=== PATIENT | female | born 1990 | race Caucasian/White ===

== ENCOUNTER 2018-07-24 00:25 | Emergency (ER) | payer OTHER ==
[2018-07-24 00:33] VITALS: BP 138/92; PULSE 94; TEMP 98.1; BMI 20.7
--- NOTE | 2018-07-24 00:44 | PDOC ---
History of Present Illness - General Chief Complaint: Urinary Problem Stated Complaint: URINARY SYMPTOMS Time Seen by Provider: 07/24/18 00:42 History Source: Patient Exam Limitations: No Limitations - History of Present Illness Initial Comments: 07/24/18 00:45 This is a 28-year-old female who comes in complaining of frequency dysuria or blood in her urine. Patient has had the symptoms for several days. Patient denies any diarrhea fever chills back pain or flank pain. Patient has history of similar symptoms in the past for urinary tract infection. However patient says it's worse than usual. PAST MEDICAL HISTORY: no significant history PAST SURGICAL HISTORY: no significant history FAMILY HISTORY: no pertinant history SOCIAL HISTORY: Pt lives with family and is employed. MEDICATIONS: reviewed ALLERGIES: As per nursing notes Review of Systems General: No fevers or chills, no weakness, no weight loss HEENT: No change in vision. No sore throat,. No ear pain CardioVascular: No chest pain or shortness of breath Respiratory:No cough, or wheezing. Gastrointestinal: no nausea, vomitting, diarrhea or constipation, No rectal bleeding Genitourinary: + dysuria, + hematuria, or + frequency Musculoskeletal: No joint or muscle pain or swelling Neurologic: No headache, vertigo, dizziness or loss of consciousness Psychiatric: nor depression Skin: No rashes or easy bruising Endocrine: no increased thirst or abnormal weight change Allergic: no skin or latex allergy All other systems reviewed and normal GENERAL: The patient is awake, alert, and fully oriented, in no acute distress. HEAD: Normal with no signs of trauma. EYES: Pupils equal, round and reactive to light, extraocular movements intact, sclera anicteric, conjunctiva clear. EXTREMITIES: Normal range of motion, no edema. BACK: There is no CVA back or flank pain and palpation NEUROLOGICAL: Normal speech, normal gait. grossly intact PSYCH: Normal mood, normal affect. SKIN: Warm, Dry, normal turgor, no rashes or lesions noted.: Past History - Past Medical History Allergies/Adverse Reactions: Allergies Allergy/AdvReac Type Severity Reaction Status Date / Time No Known Allergies Allergy Unverified 07/24/18 00:26 Home Medications: Ambulatory Orders Nitrofurantoin Monohyd/M-Cryst [Macrobid -] 100 mg PO BID #28 capsule 07/24/18 Norgestimate-Ethinyl Estradiol [Ortho-Cyclen] 1 each PO DAILY 07/24/18 Phenazopyridine HCl [Pyridium] 200 mg PO TID #6 tablet 07/24/18 COPD: No - Suicide/Smoking/Psychosocial Hx Smoking History: Never smoked *Physical Exam - Vital Signs Last Vital Signs Temp Pulse Resp BP Pulse Ox 98.1 F 94 H 18 138/92 98 07/24/18 00:28 07/24/18 00:28 07/24/18 00:28 07/24/18 00:07/24/18 00:28 *DC/Admit/Observation/Transfer Diagnosis at time of Disposition: Cystitis - Discharge Dispostion Disposition: HOME Condition at time of disposition: Stable Decision to Admit order: No - Prescriptions Prescriptions: Nitrofurantoin Monohyd/M-Cryst [Macrobid -] 100 mg PO BID #28 capsule Phenazopyridine HCl [Pyridium] 200 mg PO TID #6 tablet - Referrals Referrals: Yolande Walden MD [Primary Care Provider] - - Patient Instructions Additional Instructions: For the pain take Pyridium 1 tablet 3 times a day For the urinary tract infection take Macrobid 1 tablet twice a day Drink plenty of fluids, Tylenol or Motrin for fevers, Return to the emergency department immediately with ANY new, persistent or worsening symptoms. Continue any medications as previously prescribed by your physician. You should follow up with your primary doctor as soon as possible regarding today's emergency department visit. . Please make sure your doctor reviews the results of your emergency evaluation. Thank you for coming to the Emergency Department today for your care. It was a pleasure to see you today. Please note that your evaluation is INCOMPLETE until you follow-up with your doctor. - Post Discharge Activity Forms/Work/School Notes: Back to Work
[2018-07-24] MEDS ORDERED: PHENAZOPYRIDINE HCL 100 MG TABLET (FP) ONE (00:45)
[2018-07-24 02:11] LABS: HCG,QUALITATIVE URINE Negative
[2018-07-24 02:21] LABS: URINE APPEARANCE CLEAR; URINE BILIRUBIN NEGATIVE (<2.0 mg/dL); URINE COLOR AMBER; URINE GLUCOSE (UA) NEGATIVE (NEGATIVE); URINE KETONE NEGATIVE (NEGATIVE); URINE NITRITE POSITIVE (NEGATIVE); URINE UROBILINOGEN NEGATIVE mg/dL (0.2-1.0)
[2018-07-24 02:25] LABS: URINE LEUK ESTERASE 2+ (NEGATIVE); URINE PROTEIN 1+ (NEGATIVE)
[2018-07-24] MEDS ORDERED: NITROFURANTOIN MACROCRYSTAL 50 MG CAPSULE (FP) ONE (02:33)
[2018-07-24] MEDS ORDERED: NITROFURANTOIN MACROCRYSTAL 50 MG CAPSULE (FP) PO SCH (02:45)
[2018-07-24] MEDS ORDERED: PHENAZOPYRIDINE HCL 100 MG TABLET (FP) PO SCH (09:00)
== END 2018-07-24 02:38 | disposition home or self-care (01) ==
LOC: FER 00:25
DX: N30.91 Cystitis, unspecified with hematuria (principal)
CPT/HCPCS: 81003; 81015; 84703; 87086; 87186; 99282-25

== ENCOUNTER 2020-08-13 23:50 | Emergency (ER) | payer OTHER ==
[2020-08-14 00:04] VITALS: BP 137/87; PULSE 75; TEMP 97.2; BMI 20.7
--- NOTE | 2020-08-14 00:42 | PDOC ---
History of Present Illness - General Chief Complaint: Urinary Problem Stated Complaint: UTI SYX Time Seen by Provider: 08/14/20 00:07 History Source: Patient Exam Limitations: No Limitations - History of Present Illness Initial Comments: 08/14/20 00:42 Jennifer Rollins is a 30F presenting with Past History - Medical History Allergies/Adverse Reactions: Allergies Allergy/AdvReac Type Severity Reaction Status Date / Time No Known Allergies Allergy Unverified 07/24/18 00:26 Home Medications: Ambulatory Orders Nitrofurantoin Monohyd/M-Cryst [Macrobid -] 100 mg PO BID #28 capsule 07/24/18 Norgestimate-Ethinyl Estradiol [Ortho-Cyclen] 1 each PO DAILY 07/24/18 Phenazopyridine HCl [Pyridium] 200 mg PO TID #6 tablet 07/24/18 COPD: No - Reproductive History Is Patient Now?: No - Psycho-Social/Smoking History Smoking History: Unknown if ever smoked - Substance Abuse Hx (Audit-C & DAST Scrn) How often the patient has a drink containing alcohol: Monthly or less Score: In Men: 4 or > Positive; In Women: 3 or > Positive: 1 Screen Result (Pos requires Nsg. Audit-10AR): Negative In the last yr the pt used illegal drug/Rx for NonMed reason: No Score: Yes response is considered Positive: 0 Screen Result (Positive result requires Nsg. DAST-10): Negative *Physical Exam - Vital Signs Last Vital Signs Temp Pulse Resp BP Pulse Ox 97.2 F L 75 18 137/87 97 08/14/20 00:01 08/14/20 00:01 08/14/20 00:01 08/14/20 00:01 08/14/20 00:01 Medical Decision Making - Medical Decision Making 08/14/20 00:42 ... Discharge - Discharge Information Problems reviewed: Yes - Follow up/Referral Referrals: Albina Maharaj MD [Primary Care Provider] - - Patient Discharge Instructions - Post Discharge Activity
[2020-08-14 01:23] LABS: EPI CELLS 7 /uL (0-25.1); HYALINE CASTS 17 /uL (0-3.1); PH,URINE 6.5 (5.0-8.0); URINE APPEARANCE TURBID; URINE BACTERIA 537 /uL (0-1359); URINE BILIRUBIN NEGATIVE (NEGATIVE); URINE COLOR RED; URINE GLUCOSE (UA) NEGATIVE (NEGATIVE); URINE KETONE NEGATIVE (NEGATIVE); URINE LEUK ESTERASE 3+ (NEGATIVE); URINE NITRITE NEGATIVE (NEGATIVE); URINE PROTEIN 3+ (NEGATIVE); URINE RBC 934 /uL (0-23.9); URINE UROBILINOGEN 0.2 mg/dL (0.2-1.0); URINE WBC 4252 /uL (0-25.8)
[2020-08-14] MEDS ORDERED: CEPHALEXIN MONOHYDRATE 500 MG CAPSULE (UD) PO STA (01:32)
[2020-08-14] MEDS ORDERED: PHENAZOPYRIDINE HCL 100 MG TABLET (FP) PO ONE (01:33)
[2020-08-14] MEDS ORDERED: CEPHALEXIN MONOHYDRATE 500 MG CAPSULE (UD) ONE (01:35)
[2020-08-14] MEDS ORDERED: PHENAZOPYRIDINE HCL 100 MG TABLET (FP) ONE (01:35)
--- NOTE | 2020-08-14 01:44 | PDOC ---
Documentation entered by Yaritza Mejia SCRIBE, acting as scribe for Mala Chaney MD. Mala Chaney MD: This documentation has been prepared by the Lilly hanley Sydney, SCRIBE, under my direction and personally reviewed by me in its entirety. I confirm that the documentation accurately reflects all work, treatment, procedures, and medical decision making performed by me. Attending Attestation - Resident Resident Name: [email or web address] - ED Attending Attestation I have performed the following: I have examined & evaluated the patient, The case was reviewed & discussed with the resident, I agree w/resident's findings & plan, Exceptions are as noted - HPI HPI: 08/14/20 00:45 Patient is a 30 year old female with no significant past medical history who presents to the ED with dysuria. Denies headache, fever, chills, shortness of breath, chest pain, abdominal pain, nausea, vomiting, or diarrhea. Allergies: NKDA PCP: Dr. Maharaj - Physicial Exam PE: 08/14/20 00:51 wnwd 30 yo female p/w dysuria head ncat neck supple lungs cta b/l cvs [id number] abdomen nontender no flank pain skin warm and dry extremities no edema neuro axox3,ambulatory 08/14/20 01:44 - Medical Decision Making 08/14/20 00:53 UA /uhcg 08/14/20 01:30 negative test ua+ uti imp UTI, d/c home with antibiotics Discharge - Discharge Information Problems reviewed: Yes Clinical Impression/Diagnosis: Cystitis Condition: Stable Disposition: HOME - Admission No - Additional Discharge Information Prescriptions: Nitrofurantoin Monohyd/M-Cryst [Macrobid -] 100 mg PO BID #20 capsule Phenazopyridine HCl [Pyridium -] 100 mg PO BID #6 tablet MDD 2 tabs - Follow up/Referral Referrals: Albina Maharaj MD [Primary Care Provider] - - Patient Discharge Instructions Patient Printed Discharge Instructions: DI for Urinary Tract Infection (UTI) Additional Instructions: Please take your antibiotics as directed Return for any worsening symptoms - Post Discharge Activity
== END 2020-08-14 01:58 | disposition home or self-care (01) ==
LOC: JER 23:50
DX: N30.00 Acute cystitis without hematuria (principal)
CPT/HCPCS: 81003; 84703; 99283-25

== ENCOUNTER 2021-09-18 00:50 | Emergency (ER) | payer OTHER ==
[2021-09-18 01:07] VITALS: BP 153/95; PULSE 96; TEMP 98; BMI 20.7
[2021-09-18] MEDS ORDERED: PHENAZOPYRIDINE HCL 100 MG TABLET (FP) PO ONE (01:38)
[2021-09-18] MEDS ORDERED: PHENAZOPYRIDINE HCL 100 MG TABLET (FP) ONE (01:44)
[2021-09-18 01:58] LABS: EPI CELLS >36 /uL (0-25.1); HYALINE CASTS 1 /uL (0-3.1); URINE APPEARANCE CLEAR; URINE BACTERIA 409 /uL (0-1359); URINE BILIRUBIN NEGATIVE (NEGATIVE); URINE COLOR YELLOW; URINE GLUCOSE (UA) NEGATIVE (NEGATIVE); URINE KETONE NEGATIVE (NEGATIVE); URINE LEUK ESTERASE 2+ (NEGATIVE); URINE NITRITE NEGATIVE (NEGATIVE); URINE PROTEIN TRACE (NEGATIVE); URINE RBC 25 /uL (0-23.9); URINE UROBILINOGEN 0.2 mg/dL (0.2-1.0); URINE WBC 81 /uL (0-25.8)
[2021-09-18] MEDS ORDERED: SULFAMETHOXAZOLE/TRIMETHOPRIM 800MG/160MG D.S. TABLET PO ONE (02:29)
[2021-09-18] MEDS ORDERED: SULFAMETHOXAZOLE/TRIMETHOPRIM 800MG/160MG D.S. TABLET ONE (02:32)
[2021-09-18 10:21] LABS: HCG,QUALITATIVE URINE Negative
== END 2021-09-18 02:35 | disposition home or self-care (01) ==
LOC: FER 00:50
DX: N30.90 Cystitis, unspecified without hematuria (principal)
CPT/HCPCS: 81003; 81025; 84703; 87086; 87186; 99283-25

== ENCOUNTER 2022-02-11 04:26 | Day surgery (SDC) | payer OTHER ==
[2022-02-08 12:18] VITALS: BMI 21.1
[2022-02-11 06:45] LABS: HEMATOCRIT 40.5 % (32.4-45.2); HEMOGLOBIN 13.7 GM/dL (10.7-15.3); MCHC 33.9 g/dl (32.0-36.0); MEAN CELL VOLUME 91.6 fl (80-96); MEAN PLT VOLUME 8.7 fl (7.5-11.1); PLATELET COUNT 252 10^3/uL (134-434); RBC 4.42 M/mm3 (3.60-5.2); RDW 13.1 % (11.6-15.6); WHITE BLOOD COUNT 7.8 K/mm3 (4.0-10.0)
[2022-02-11 07:42] LABS: INR 0.91 (0.83-1.09); PROTHROMBIN TIME (PATIENT) 10.4 SEC (9.7-13.0)
[2022-02-11 07:45] LABS: ACTIVATED PTT 33.7 SECONDS (25.2-36.5)
[2022-02-11] MEDS ORDERED: MIDAZOLAM HCL 2 MG/2 ML SINGLE DOSE VIAL ONE (07:49)
[2022-02-11] MEDS ORDERED: PROPOFOL 20 ML ONE ×2 (07:49)
[2022-02-11] MEDS ORDERED: oxyCODONE HCL 5 MG TABLET PO PRN (08:10)
[2022-02-11] MEDS ORDERED: ACETAMINOPHEN 325 MG TABLET (FP) PO PRN (08:10)
[2022-02-11] MEDS ORDERED: IBUPROFEN 400 MG TABLET (FP) PO PRN (08:10)
[2022-02-11] MEDS ORDERED: ONDANSETRON 4 MG/2 ML VIAL IVPUSH PRN (08:50)
[2022-02-11] MEDS ORDERED: LACTATED RINGERS SOLUTION 1,000 ML IV SCH (09:00)
[2022-02-11 09:29] VITALS: TEMP 97.5
[2022-02-11 11:41] VITALS: PULSE 68
[2022-02-13 14:25] VITALS: BP 110/70
== END 2022-02-11 13:00 | disposition home or self-care (01) ==
LOC: JASU-SURG 04:26
PROVIDERS: ATTEND Obstetrics & Gynecology
PROC: 0UBC7ZX Excision of Cervix, Via Natural or Artificial Opening, Diagnostic (ICD-10-PCS; principal; 2022-02-11 08:00)
DX: N87.1 Moderate cervical dysplasia (principal)
CPT/HCPCS: 36415; 81025; 84703; 85027; 85610; 85730; 86850; 86900; 86901; 88305-TC; 88307-TC; 94760